=== PATIENT | male | born 1995 | race American Indian/Alaskan Native ===

== ENCOUNTER 2016-05-31 19:02 | Emergency (ER) | payer OTHER ==
[2016-05-31 19:29] VITALS: BP 118/83
--- NOTE | 2016-05-31 21:23 | Emergency Department Report ---
- General Chief Complaint: Upper Respiratory Infection Stated Complaint: PAINFUL COUGHING Time Seen by Provider: 05/31/16 20:52 Source: patient, family Mode of arrival: Ambulatory Limitations: No Limitations - History of Present Illness Initial Comments: 20-year-old male past medical history asthma, smoker presents with complaint of mild sore throat and dry cough since this morning. Patient denies any body aches no nausea no vomiting denies any fever or chills, states cough is nonproductive. Denies any direction contacts. Denies any chest pain no abdominal pain. Patient is awake alert and oriented 3 not in acute distress no audible wheezing or stridor. Patient has been in his usual state of health until today. Denies any difficulty swallowing solids or liquids. No trismus and no drooling on exam. Minor clear nasal drainage, denies any earache. Denies any recent travel. MD Complaint: sore throat Onset/Timin -: days(s) Severity: moderate Severity scale (0 -10): 3 Quality: aching Consistency: intermittent Improves With: nothing Worsens With: nothing Associated Symptoms: denies other symptoms - Related Data Previous Rx's Medication Instructions Recorded Last Taken Type ALBUTEROL Inhaler [ProAir HFA 2 puff IH QID PRN #1 inhalation 05/31/16 Unknown Rx Inhaler] Benzocaine/Menthol [Cepacol Sore 1 each MM Q4H PRN #18 lozenge 05/31/16 Unknown Rx Throat Lozenge] Ibuprofen [Motrin] 600 mg PO Q8H PRN #20 tablet 05/31/16 Unknown Rx Phenylephrine/Dm/Acetaminop/GG 10 ml PO Q6H PRN #1 liquid 05/31/16 Unknown Rx [Mucinex Pxnm-Jph-Hgmumzznvc Lq] Allergies Allergy/AdvReac Type Severity Reaction Status Date / Time No Known Allergies Allergy Unverified 05/31/16 19:21 ED Review of Systems ROS: Stated complaint: PAINFUL COUGHING Other details as noted in HPI Constitutional: denies: chills, fever Eyes: denies: eye pain, eye discharge, vision change ENT: throat pain. denies: ear pain Respiratory: cough. denies: shortness of breath, wheezing Cardiovascular: denies: chest pain, palpitations Endocrine: no symptoms reported Gastrointestinal: denies: abdominal pain, nausea, diarrhea Genitourinary: denies: urgency, dysuria Musculoskeletal: denies: back pain, joint swelling, arthralgia Skin: denies: rash, lesions Neurological: denies: headache, weakness, paresthesias Psychiatric: denies: anxiety, depression Hematological/Lymphatic: denies: easy bleeding, easy bruising ED Past Medical Hx - Past Medical History Previous Medical History?: Yes Hx Asthma: Yes - Surgical History Past Surgical History?: No - Social History Smoking Status: Current Every Day Smoker Substance Use Type: None - Medications Home Medications: Home Medications Medication Instructions Recorded Confirmed Last Taken Type ALBUTEROL Inhaler [ProAir HFA 2 puff IH QID PRN #1 inhalation 05/31/16 Unknown Rx Inhaler] Benzocaine/Menthol [Cepacol Sore 1 each MM Q4H PRN #18 lozenge 05/31/16 Unknown Rx Throat Lozenge] Ibuprofen [Motrin] 600 mg PO Q8H PRN #20 tablet 05/31/16 Unknown Rx Phenylephrine/Dm/Acetaminop/GG 10 ml PO Q6H PRN #1 liquid 05/31/16 Unknown Rx [Mucinex Dpwb-Ihd-Gqihbonlnp Lq] ED Physical Exam - General Limitations: No Limitations General appearance: alert, in no apparent distress - Head Head exam: Present: atraumatic, normocephalic - Eye Eye exam: Present: normal appearance, PERRL, EOMI - ENT ENT exam: Present: normal exam, normal orophraynx, mucous membranes moist, other (no stridor on auscultation of throat) - Expanded ENT Exam Expanded Ear exam: Present: normal external inspection Mouth exam: Present: normal external inspection, tongue normal, other (no muffled voice no trismus noted) Teeth exam: Present: normal inspection Throat exam: Positive: normal inspection - Neck Neck exam: Present: normal inspection - Respiratory Respiratory exam: Present: normal lung sounds bilaterally. Absent: respiratory distress - Cardiovascular Cardiovascular Exam: Present: regular rate, normal rhythm. Absent: systolic murmur, diastolic murmur, rubs, gallop - GI/Abdominal GI/Abdominal exam: Present: soft, normal bowel sounds - Rectal Rectal exam: Present: deferred - Extremities Exam Extremities exam: Present: normal inspection - Back Exam Back exam: Present: normal inspection - Neurological Exam Neurological exam: Present: alert, oriented X3, CN II-XII intact, normal gait - Psychiatric Psychiatric exam: Present: normal affect, normal mood - Skin Skin exam: Present: warm, dry, intact, normal color. Absent: rash ED Course Vital Signs 05/31/16 19:21 Temperature 98.3 F Pulse Rate 66 Respiratory 18 Rate Blood Pressure 118/83 Blood Pressure 118/83 [Left] O2 Sat by Pulse 100 Oximetry ED Medical Decision Making - Medical Decision Making A/P: URI, cold symptoms 1-Motrin when necessary, Mucinex when necessary, throat lozenges, albuterol when necessary, patient requesting refill of albuterol inhaler. 2-primary care doctor follow-up 3-eyes patient to return if he has any difficulty swallowing solids or fluids, any shortness of breath and a persistent productive cough associated with fever or chills 4-check patient's temperature twice as he was concerned he had fever, 98.6F orally both times Critical care attestation.: If time is entered above; I have spent that time in minutes in the direct care of this critically ill patient, excluding procedure time. ED Disposition Clinical Impression: Upper respiratory infection Qualifiers: URI type: unspecified viral URI Qualified Code(s): J06.9 - Acute upper respiratory infection, unspecified; B97.89 - Other viral agents as the cause of diseases classified elsewhere Disposition: DISCHARGED TO HOME OR SELFCARE Is pt being admited?: No Does the pt Need Aspirin: No Condition: Stable Instructions: Upper Respiratory Infection (ED), Cold Symptoms (ED) Prescriptions: ALBUTEROL Inhaler [ProAir HFA Inhaler] 2 puff IH QID PRN #1 inhalation PRN Reason: Shortness Of Breath Benzocaine/Menthol [Cepacol Sore Throat Lozenge] 1 each MM Q4H PRN #18 lozenge PRN Reason: Sore Throat Ibuprofen [Motrin] 600 mg PO Q8H PRN #20 tablet PRN Reason: Pain Phenylephrine/Dm/Acetaminop/GG [Mucinex Pwga-Xvi-Lzeocxkgtz Lq] 10 ml PO Q6H PRN #1 liquid PRN Reason: Sore Throat Referrals: PRIMARY CARE, [Primary Care Provider] - 3-5 Days DANY GOINS MD [Staff Physician] - 3-5 Days [facility] [Outside] - 3-5 Days Forms: Accompanied Note, Work/School Release Form(ED) Time of Disposition: 21:24
== END 2016-05-31 21:27 | disposition home or self-care (01) ==
LOC: ED 19:02
DX: J06.9 Acute upper respiratory infection, unspecified (principal); B97.89 Other viral agents as the cause of diseases classified elsewhere; J45.909 Unspecified asthma, uncomplicated; F17.200 Nicotine dependence, unspecified, uncomplicated
CPT/HCPCS: 99282

== ENCOUNTER 2017-02-13 13:21 | Emergency (ER) | payer SELFPAY ==
[2017-02-13 13:40] VITALS: BP 122/75
[2017-02-13 14:00] LABS: Basophils % (Auto) 0.8 % (0.0-1.8); Eosinophils % (Auto) 3.1 % (0.0-4.3); Hematocrit 44.8 % (35.5-45.6); Hemoglobin 14.4 gm/dl (11.8-15.2); Mean Corpuscular HGB Conc 32 % (32-34); Mean Corpuscular Hemoglobin 27 pg (28-32); Mean Corpuscular Volume 84 fl (84-94); Platelet Count 184 K/mm3 (140-440); Red Blood Count 5.31 M/mm3 (3.65-5.03); Red Cell Distribution Width 14.6 % (13.2-15.2); White Blood Count 9.5 K/mm3 (4.5-11.0)
[2017-02-13 14:16] LABS: Alanine Aminotransferase 13 units/L (7-56); Albumin 4.5 g/dL (3.9-5); Albumin/Globulin Ratio 1.9 %; Alkaline Phosphatase 39 units/L (35-129); Anion Gap 14 mmol/L; BUN/Creatinine Ratio 8; Blood Urea Nitrogen 7 mg/dL (9-20); Carbon Dioxide 27 mmol/L (22-30); Chloride 103.4 mmol/L (98-107); Glucose 91 mg/dL (75-100); Lipase 22 units/L (13-60); Potassium 5.1 mmol/L (3.6-5.0); Sodium 139 mmol/L (137-145); Total Protein 6.9 g/dL (6.3-8.2)
[2017-02-13 15:47] LABS: Bilirubin,Urine NEG (Negative); Blood,Urine NEG (Negative); Ketones,Urine NEG (Negative); Leukocyte Esterase,Urine NEG (Negative); Mucus,Urine FEW /HPF; Nitrite,Urine NEG (Negative); Protein,Urine <15 mg/dL mg/dL (Negative); Urobilinogen,Urine < 2.0 mg/dL (<2.0)
--- NOTE | 2017-02-13 15:54 | Emergency Department Report ---
ED Abdominal Pain HPI - General Chief Complaint: Abdominal Pain Stated Complaint: ABDOMINAL PAIN Time Seen by Provider: 02/13/17 15:55 Source: patient, family Mode of arrival: Ambulatory Limitations: No Limitations - History of Present Illness Initial Comments: Patient complaining of upper abdominal pain since yesterday. Patient stated that he ate tackle gaitan and when these at the same time and after that his stomach started hurting. He said he was having some nausea and vomiting yesterday but he hasn't had any today. Denies any diarrhea. Pain to abdomen is crampy and it comes and goes for up to 10 pointing to epigastric area. Denies any blood in stool or vomit. Patient has a history of asthma. He is here with his family member. Denies any back pain. Denies any urinary burning frequency or urgency. MD Complaint: abdominal pain Onset/Timin -: days(s) Location: epigastric Radiation: none Migration to: no migration Severity: mild Severity scale (0 -10): 4 Quality: cramping Consistency: intermittent Context: possible food poisoning Associated Symptoms: nausea, vomiting. denies: diarrhea, fever, chills, constipation, dysuria, hematemesis, hematochezia, melena, hematuria, anorexia, syncope Treatments Prior to Arrival: other (none) - Related Data Previous Rx's Medication Instructions Recorded Last Taken Type ALBUTEROL Inhaler [ProAir HFA 2 puff IH QID PRN #1 inhalation 05/31/16 Unknown Rx Inhaler] Benzocaine/Menthol [Cepacol Sore 1 each MM Q4H PRN #18 lozenge 05/31/16 Unknown Rx Throat Lozenge] Ibuprofen [Motrin] 600 mg PO Q8H PRN #20 tablet 05/31/16 Unknown Rx Phenylephrine/Dm/Acetaminop/GG 10 ml PO Q6H PRN #1 liquid 05/31/16 Unknown Rx [Mucinex Aath-Exe-Tyobjxxxcf Lq] Dicyclomine [Bentyl] 20 mg PO Q8H #9 tablet 02/13/17 Unknown Rx Promethazine [Phenergan TAB] 25 mg PO Q8HR PRN #12 tab 02/13/17 Unknown Rx Allergies Allergy/AdvReac Type Severity Reaction Status Date / Time No Known Allergies Allergy Unverified 05/31/16 19:21 ED Review of Systems ROS: Stated complaint: ABDOMINAL PAIN Other details as noted in HPI Comment: All other systems reviewed and negative Constitutional: no symptoms reported ENT: denies: throat pain Respiratory: no symptoms reported Cardiovascular: denies: chest pain, palpitations, dyspnea on exertion, edema, syncope, paroxysmal nocturnal dyspnea Gastrointestinal: abdominal pain, nausea, vomiting. denies: diarrhea, constipation, hematemesis, melena, hematochezia Genitourinary: denies: urgency, dysuria, frequency, hematuria, discharge, testicular pain, testicular mass Musculoskeletal: denies: back pain, joint swelling, arthralgia, myalgia Skin: denies: rash Neurological: denies: headache, weakness, numbness, paresthesias, confusion, abnormal gait, vertigo ED Past Medical Hx - Past Medical History Previous Medical History?: Yes Hx Asthma: Yes - Surgical History Past Surgical History?: No - Family History Family history: no significant - Social History Smoking Status: Current Some Day Smoker Substance Use Type: None, Marijuana - Medications Home Medications: Home Medications Medication Instructions Recorded Confirmed Last Taken Type ALBUTEROL Inhaler [ProAir HFA 2 puff IH QID PRN #1 inhalation 05/31/16 Unknown Rx Inhaler] Benzocaine/Menthol [Cepacol Sore 1 each MM Q4H PRN #18 lozenge 05/31/16 Unknown Rx Throat Lozenge] Ibuprofen [Motrin] 600 mg PO Q8H PRN #20 tablet 05/31/16 Unknown Rx Phenylephrine/Dm/Acetaminop/GG 10 ml PO Q6H PRN #1 liquid 05/31/16 Unknown Rx [Mucinex Bfws-Gnz-Bxsfbnoweu Lq] Dicyclomine [Bentyl] 20 mg PO Q8H #9 tablet 02/13/17 Unknown Rx Promethazine [Phenergan TAB] 25 mg PO Q8HR PRN #12 tab 02/13/17 Unknown Rx ED Physical Exam - General Limitations: No Limitations General appearance: alert, in no apparent distress - Head Head exam: Present: atraumatic, normocephalic, normal inspection - Eye Eye exam: Present: normal appearance, PERRL, EOMI. Absent: periorbital swelling , periorbital tenderness Pupils: Present: normal accommodation - ENT ENT exam: Present: normal exam, normal orophraynx, mucous membranes moist, TM's normal bilaterally, normal external ear exam - Neck Neck exam: Present: normal inspection, full ROM, other (No C-spine tenderness). Absent: tenderness, meningismus, lymphadenopathy, thyromegaly - Expanded Neck Exam Expanded Neck exam: Absent: tenderness, midline deformity, anterior neck swelling, thyroid mass, tracheal deviation - Respiratory Respiratory exam: Present: normal lung sounds bilaterally. Absent: respiratory distress, wheezes, chest wall tenderness, accessory muscle use, decreased breath sounds - Cardiovascular Cardiovascular Exam: Present: regular rate, normal rhythm, normal heart sounds. Absent: systolic murmur, diastolic murmur - GI/Abdominal GI/Abdominal exam: Present: soft, normal bowel sounds. Absent: distended, tenderness, guarding, rebound, rigid, organomegaly, mass, bruit, pulsatile mass , hernia - Extremities Exam Extremities exam: Present: normal inspection, full ROM, normal capillary refill , other (clubbing, cyanosis or edema. +2 pulses in all extremities. No neurovascular compromise.). Absent: tenderness, pedal edema, joint swelling, calf tenderness - Back Exam Back exam: Present: normal inspection, full ROM. Absent: tenderness, CVA tenderness (R), CVA tenderness (L), muscle spasm, paraspinal tenderness, vertebral tenderness, rash noted - Neurological Exam Neurological exam: Present: alert, oriented X3, normal gait, reflexes normal. Absent: motor sensory deficit - Psychiatric Psychiatric exam: Present: normal affect, normal mood - Skin Skin exam: Present: warm, dry, intact, normal color. Absent: rash ED Course Vital Signs 02/13/17 13:36 Temperature 98.2 F Pulse Rate 74 Respiratory 16 Rate Blood Pressure 122/75 O2 Sat by Pulse 99 Oximetry - Reevaluation(s) Reevaluation #1: 02/13/17 17:13 She given GI cocktail in the emergency room to include Maalox, Benadryl, viscous lidocaine and nystatin and he reports that he is feeling better. He was orally challenged and drank 2 cups of apple juice without any pain or nausea or vomiting. Patient said he is feeling much better and ready to go. ED Medical Decision Making - Lab Data Result diagrams: 02/13/17 13:46 02/13/17 13:46 Lab Results 02/13/17 02/13/17 02/13/17 Range/Units 13:46 13:46 14:18 WBC 9.5 (4.5-11.0) K/mm3 RBC 5.31 H (3.65-5.03) M/mm3 Hgb 14.4 (11.8-15.2) gm/dl Hct 44.8 (35.5-45.6) % MCV 84 (84-94) fl MCH 27 L (28-32) pg MCHC 32 (32-34) % RDW 14.6 (13.2-15.2) % Plt Count 184 (140-440) K/mm3 Lymph % (Auto) 20.7 (13.4-35.0) % [place] % (Auto) 6.0 (0.0-7.3) % Eos % (Auto) 3.1 (0.0-4.3) % Baso % (Auto) 0.8 (0.0-1.8) % Lymph # 2.0 (1.2-5.4) K/mm3 [place] # 0.6 (0.0-0.8) K/mm3 Eos # 0.3 (0.0-0.4) K/mm3 Baso # 0.1 (0.0-0.1) K/mm3 Seg Neutrophils % 69.4 (40.0-70.0) % Seg Neutrophils # 6.6 (1.8-7.7) K/mm3 Sodium 139 (137-145) mmol/L Potassium 5.1 H (3.6-5.0) mmol/L Chloride 103.4 (98-107) mmol/L Carbon Dioxide 27 (22-30) mmol/L Anion Gap 14 mmol/L BUN 7 L (9-20) mg/dL Creatinine 0.9 (0.8-1.5) mg/dL Estimated GFR > 60 ml/min BUN/Creatinine Ratio 8 % Glucose 91 (75-100) mg/dL Calcium 9.0 (8.4-10.2) mg/dL Total Bilirubin 0.30 (0.1-1.2) mg/dL AST 20 (5-40) units/L ALT 13 (7-56) units/L Alkaline Phosphatase 39 (35-129) units/L Total Protein 6.9 (6.3-8.2) g/dL Albumin 4.5 (3.9-5) g/dL Albumin/Globulin Ratio 1.9 % Lipase 22 (13-60) units/L Urine Color Yellow (Yellow) Urine Turbidity Clear (Clear) Urine pH 7.0 (5.0-7.0) Ur Specific [place] 1.020 (1.003-1.030) Urine Protein <15 mg/dl (Negative) mg/dL Urine Glucose (UA) Neg (Negative) mg/dL Urine Ketones Neg (Negative) mg/dL Urine Blood Neg (Negative) Urine Nitrite Neg (Negative) Urine Bilirubin Neg (Negative) Urine Urobilinogen < 2.0 (<2.0) mg/dL Ur Leukocyte Esterase Neg (Negative) Urine WBC (Auto) 1.0 (0.0-6.0) /HPF Urine RBC (Auto) 1.0 (0.0-6.0) /HPF U Epithel Cells (Auto) < 1.0 (0-13.0) /HPF Urine Mucus Few /HPF - Medical Decision Making ED course: Patient here reports that he got food poisoning from eating in [employer] and tackled Gaitan about once yesterday. He said he had some nausea and vomiting yesterday but he has not had any today. Abdominal exam is normal. Patient had minimal tenderness to palpate in all quadrants and no acute abdomen. He had no fever. Patient was given GI cocktail to include Maalox 15 mL, Benadryl 25 mL, nystatin 5 mL and lidocaine 15 mL in the emergency room which relieved his abdominal discomfort. He had no episode of nausea vomiting and emergency room and he said he was feeling better. He was able tolerate oral liquids without any difficulties. I discussed with patient that he should start eating and bland diet over the next 72 hours to include banana, rice, applesauce and toast and increase his fluid intake to flush his system. Patient lab work was normal except that his potassium was 5.1 which is 0.1 over the normal. Lab work was discussed with patient and family member. Treatment plan discussed and they voiced understanding. Patient discharged home with prescription for Bentyl and Phenergan and to follow up with his primary care physician in 2-3 days and if he does not have a primary care physician and he should follow-up at [facility]. Critical care attestation.: If time is entered above; I have spent that time in minutes in the direct care of this critically ill patient, excluding procedure time. ED Disposition Clinical Impression: Stomach cramps, Nausea and vomiting in adult Disposition: DC-01 TO HOME OR SELFCARE Is pt being admited?: No Does the pt Need Aspirin: No Condition: Stable Instructions: Acute Nausea and Vomiting (ED), Acute Abdominal Pain (ED) Additional Instructions: [place] diet Increase fluid intake Take phenergan as needed for nausea take bentyl for stomach cramps Prescriptions: Dicyclomine [Bentyl] 20 mg PO Q8H #9 tablet Promethazine [Phenergan TAB] 25 mg PO Q8HR PRN #12 tab PRN Reason: Nausea Referrals: PRIMARY CARE, [Primary Care Provider] - 3-5 Days Forms: Work/School Release Form(ED)
[2017-02-13] MEDS ORDERED: ALUM-MAG HYDROX-SIMETH 200-200-20MG/5ML PO ONE (16:04)
[2017-02-13] MEDS ORDERED: BENADRYL PO ONE (16:04)
[2017-02-13] MEDS ORDERED: NYSTATIN PO ONE (16:04)
[2017-02-13] MEDS ORDERED: LIDOCAINE VISCOUS 2% PO ONE (16:04)
[2017-02-13] MEDS: MAGIC MOUTHWASH PO ONE ×2 (16:27→17:03)
== END 2017-02-13 17:35 | disposition home or self-care (01) ==
LOC: ED 13:21
DX: R10.12 Left upper quadrant pain (principal); R11.2 Nausea with vomiting, unspecified; F17.210 Nicotine dependence, cigarettes, uncomplicated; F12.10 Cannabis abuse, uncomplicated
CPT/HCPCS: 36415; 80053; 81001; 83690; 85025; 99283; Q0163

== ENCOUNTER 2017-07-04 10:25 | Emergency (ER) | payer OTHER ==
[2017-07-04 10:38] VITALS: BP 122/68
--- NOTE | 2017-07-04 12:10 | Emergency Department Report ---
ED Lower Extremity HPI - General Chief Complaint: Extremity Problem,Nontraumatic Stated Complaint: LEFT BIG TOE PAIN Time Seen by Provider: 07/04/17 11:55 Source: patient, family Mode of arrival: Ambulatory Limitations: No Limitations - History of Present Illness Initial Comments: 21-year-old male past medical history none presents with complaint of left sided toe pain for more than one month. Patient states that last week he stubbed his toe against a pallet bryan while at work. States he is able to walk but has discomfort at the tip of his left great toe. Denies any pus drainage. Denies any other injuries. Patient is ambulatory without assistance. MD Complaint: other (left great toe pain) Onset/Timin -: month(s) Injury: Toes: Left (left great toe) Type of Injury: blunt Place: work Severity: moderate Severity scale (0 -10): 5 Worsens With: weight bearing, palpation Associated Symptoms: snap/pop sensation Treatments Prior to Arrival: cold therapy - Related Data Previous Rx's Medication Instructions Recorded Last Taken Type ALBUTEROL Inhaler [ProAir HFA 2 puff IH QID PRN #1 inhalation 05/31/16 Unknown Rx Inhaler] Benzocaine/Menthol [Cepacol Sore 1 each MM Q4H PRN #18 lozenge 05/31/16 Unknown Rx Throat Lozenge] Ibuprofen [Motrin] 600 mg PO Q8H PRN #20 tablet 05/31/16 Unknown Rx Phenylephrine/Dm/Acetaminop/GG 10 ml PO Q6H PRN #1 liquid 05/31/16 Unknown Rx [Mucinex Slnm-Zwu-Nsqejaiemm Lq] Dicyclomine [Bentyl] 20 mg PO Q8H #9 tablet 02/13/17 Unknown Rx Promethazine [Phenergan TAB] 25 mg PO Q8HR PRN #12 tab 02/13/17 Unknown Rx Cephalexin [Keflex] 500 mg PO Q12HR #10 cap 07/04/17 Unknown Rx Ibuprofen [Motrin] 600 mg PO Q8H PRN #30 tablet 07/04/17 Unknown Rx Allergies Allergy/AdvReac Type Severity Reaction Status Date / Time No Known Allergies Allergy Unverified 05/31/16 19:21 ED Review of Systems ROS: Stated complaint: LEFT BIG TOE PAIN Other details as noted in HPI Constitutional: denies: chills, fever Eyes: denies: eye pain, eye discharge, vision change ENT: denies: ear pain, throat pain Respiratory: denies: cough, shortness of breath, wheezing Cardiovascular: denies: chest pain, palpitations Endocrine: no symptoms reported Gastrointestinal: denies: abdominal pain, nausea, diarrhea Genitourinary: denies: urgency, dysuria Musculoskeletal: denies: back pain, joint swelling, arthralgia Skin: denies: rash, lesions Neurological: denies: headache, weakness, paresthesias Psychiatric: denies: anxiety, depression Hematological/Lymphatic: denies: easy bleeding, easy bruising ED Past Medical Hx - Past Medical History Previous Medical History?: No Hx Asthma: Yes - Surgical History Past Surgical History?: No - Social History Smoking Status: Never Smoker Substance Use Type: Marijuana - Medications Home Medications: Home Medications Medication Instructions Recorded Confirmed Last Taken Type ALBUTEROL Inhaler [ProAir HFA 2 puff IH QID PRN #1 inhalation 05/31/16 Unknown Rx Inhaler] Benzocaine/Menthol [Cepacol Sore 1 each MM Q4H PRN #18 lozenge 05/31/16 Unknown Rx Throat Lozenge] Ibuprofen [Motrin] 600 mg PO Q8H PRN #20 tablet 05/31/16 Unknown Rx Phenylephrine/Dm/Acetaminop/GG 10 ml PO Q6H PRN #1 liquid 05/31/16 Unknown Rx [Mucinex Ildm-Bnp-Dabngodckm Lq] Dicyclomine [Bentyl] 20 mg PO Q8H #9 tablet 02/13/17 Unknown Rx Promethazine [Phenergan TAB] 25 mg PO Q8HR PRN #12 tab 02/13/17 Unknown Rx Cephalexin [Keflex] 500 mg PO Q12HR #10 cap 07/04/17 Unknown Rx Ibuprofen [Motrin] 600 mg PO Q8H PRN #30 tablet 07/04/17 Unknown Rx ED Physical Exam - General Limitations: No Limitations General appearance: alert, in no apparent distress - Head Head exam: Present: atraumatic, normocephalic - Eye Eye exam: Present: normal appearance, PERRL, EOMI - ENT ENT exam: Present: mucous membranes moist - Neck Neck exam: Present: normal inspection - Respiratory Respiratory exam: Present: normal lung sounds bilaterally. Absent: respiratory distress - Cardiovascular Cardiovascular Exam: Present: regular rate, normal rhythm. Absent: systolic murmur, diastolic murmur, rubs, gallop - GI/Abdominal GI/Abdominal exam: Present: soft, normal bowel sounds - Rectal Rectal exam: Present: deferred - Extremities Exam Extremities exam: Present: normal inspection - Expanded Lower Extremity Exam Left Upper Leg exam: Present: normal inspection, full ROM Knee exam: Present: normal inspection, full ROM Lower Leg exam: Present: normal inspection, full ROM Ankle exam: Present: normal inspection, full ROM Foot/Toe exam: Present: normal inspection, tenderness (tipe of left great toe) Neuro vascular tendon exam: Present: no vascular compromise (distal pulses strong to palpation) Gait: Positive: antalgic 1 - pain here - Back Exam Back exam: Present: normal inspection - Neurological Exam Neurological exam: Present: alert, oriented X3, CN II-XII intact, normal gait - Psychiatric Psychiatric exam: Present: normal affect, normal mood - Skin Skin exam: Present: warm, dry, intact, normal color. Absent: rash ED Course Vital Signs 07/04/17 10:34 Temperature 98.0 F Pulse Rate 64 Respiratory 16 Rate Blood Pressure 122/68 O2 Sat by Pulse 99 Oximetry ED Lower Extremity MDM - Medical Decision Making A/P: Left toe contusion 1-x-ray unremarkable patient is ambulatory. Distal sensation and capillary refill normal left 2-possible tiny amount of erythema no clinical felon or paronychia on exam. Patient denies any pus drainage. Short course of Keflex 3-follow-up with elementary school band director. Critical care attestation.: If time is entered above; I have spent that time in minutes in the direct care of this critically ill patient, excluding procedure time. ED Disposition Clinical Impression: Toe pain, left Contusion of toe of left foot Qualifiers: Encounter type: initial encounter Toe: great toe Damage to nail status: without damage Qualified Code(s): S90.112A - Contusion of left great toe without damage to nail, initial encounter Disposition: TO HOME OR SELFCARE Is pt being admited?: No Does the pt Need Aspirin: No Condition: Stable Instructions: Foot Contusion (ED) Prescriptions: Cephalexin [Keflex] 500 mg PO Q12HR #10 cap Ibuprofen [Motrin] 600 mg PO Q8H PRN #30 tablet PRN Reason: Pain Referrals: [facility] [Outside] - 3-5 Days [facility] [Provider Group] - 3-5 Days Forms: Work/School Release Form(ED) Time of Disposition: 13:02
--- NOTE | 2017-07-04 12:34 | XRay Report ---
LEFT TOES: History: Left great toe pain. The bony architecture is intact. Bony alignment is normal. No soft tissue abnormalities are seen. The joint spaces appear preserved. IMPRESSION: Normal left toes.
== END 2017-07-04 13:15 | disposition home or self-care (01) ==
LOC: ED 10:25
DX: S90.112A Contusion of left great toe without damage to nail, initial encounter (principal); W22.8XXA Striking against or struck by other objects, initial encounter; Y93.89 Activity, other specified; Y92.89 Other specified places as the place of occurrence of the external cause; Y99.8 Other external cause status; J45.909 Unspecified asthma, uncomplicated; F12.10 Cannabis abuse, uncomplicated
CPT/HCPCS: 99283